=== PATIENT | female | born 1955 | race Caucasian/White ===

== ENCOUNTER 2023-06-13 09:52 | Outpatient (AMB) | payer OTHER, SELFPAY ==
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
[2023-06-13 10:35] VITALS: BP 126/62; PULSE 76; RESP 16; BMI 21.8
== END 2023-06-13 11:14 | disposition home or self-care (01) ==
PROVIDERS: Visit Provider Nurse Practitioner Family
DX: G43.709 Chronic migraine without aura, not intractable, without status migrainosus (principal); G44.40 Drug-induced headache, not elsewhere classified, not intractable
CPT/HCPCS: 99204

== ENCOUNTER → 2023-06-13 09:52 | Outpatient (BNVA) | payer OTHER, SELFPAY | PROVIDERS: Visit Provider Nurse Practitioner Family ==